=== PATIENT | male | born 1960 | race Caucasian/White ===

== ENCOUNTER 2016-10-20 01:04 | Emergency (ER) | payer BC | END 2016-10-20 01:46 | disposition home or self-care (01) | LOC: ER 01:04 | DX: S30.861A Insect bite (nonvenomous) of abdominal wall, initial encounter (principal); K21.9 Gastro-esophageal reflux disease without esophagitis; W57.XXXA Bitten or stung by nonvenomous insect and other nonvenomous arthropods, initial encounter ==